=== PATIENT | male | born 1955 | race African-American/Black ===

== ENCOUNTER 2020-08-02 00:26 | Inpatient (IN) ==
[2020-08-02 00:54] LABS: Basophils % 0.1 % (0.0-0.8); Hematocrit 38.3 VOL% (42.0-52.0); Hemoglobin 12.7 GM/DL (14.0-18.0); Immature Granulocytes % 1.1 %; Immature Granulocytes Absolute 0.12 #; Lymphocytes # 1.3 10*3/uL (1.4-4.0); Lymphocytes % 12.5 % (21.2-54.2); Mean Corpuscular HGB Conc 33.2 GM/DL (32-36); Mean Corpuscular Volume 96.2 FL (87-102); Mean Platelet Volume 10.2 FL (9.6-12.0); Monocytes % 3.8 % (1.7-12.7); NRBC # 0.07 10*3/uL; Neutrophils % 82.5 % (38.7-73.9); Platelet Count 199 T/CUMM (130-400); Red Blood Count 3.98 MC/CUMM (3.8-5.5); White Blood Count 10.7 T/CUMM (4-12)
[2020-08-02 01:12] LABS: Albumin 3.1 G/DL (3.4-5.0); Bilirubin,Total 0.8 MG/DL (0.2-1.0); Calcium 8.9 MG/DL (8.5-10.1); Osmolality,Calculated 278.8 MOS/KG (273-304); Total Protein 7.5 G/DL (6.4-8.3)
[2020-08-02 01:16] LABS: ABG Base Excess 8.5 MMOL/L (-2.5-2.5); ABG HCO3 32.2 MMOL/L (20-26); ABG PCO2 45.9 MM HG (35-48); ABG PO2 91.2 MM HG (80-95); ABG TCO2 29.2 MMOL/L (23-27); Allen Test Positive; Pt O2 Delivery Device Room Air
[2020-08-02 01:51] LABS: Barbiturates Screen,Urine Negative (Negative); Benzodiazepines Screen,Urine Negative (Negative); Cannabinoid Screen,Urine Positive (Negative); Opiate Screen,Urine Negative (Negative); Phencyclidine Screen,Urine Negative (Negative)
[2020-08-02 02:01] LABS: Apearance,Urine Slightly Hazy (Clear); Bacteria,Urine Occasional /HPF (Few); Bilirubin,Urine Negative (Negative); Blood, Urine Small mg/dL (Negative); Glucose,Urine (UA) >=500 mg/dL (Negative); Hyaline Casts,Urine 1 /LPF (0-3); Ketones,Urine Negative (Negative); Mucus,Urine Occasional /LPF (Occasional); Nitrite,Urine Negative (Negative); Protein,Urine >=500 MG/DL; RBC,Urine 1 /HPF (0-4); Squamous Epithelial Cell,Urine Occasional /HPF (0-10); Urine Color Amber (Yellow); Urine Specific Gravity 1.029 (1.001-1.035); WBC,Urine 16 /HPF (0-6)
[2020-08-02] MEDS ORDERED: DEXTROSE 50% 25 GM/50 ML VIAL IV PRN ×2 (02:11)
[2020-08-02] MEDS ORDERED: ONDANSETRON 4 MG/2 ML VIAL IV PRN (02:11)
[2020-08-02] MEDS ORDERED: GLUCAGON 1 MG VIAL IM PRN ×2 (02:11)
[2020-08-02 02:31] LABS: Anisocytosis 1+; Band Neutrophils 1 % (0-10); Lymphocytes 13 % (20-55); Platelet Estimate Normal; Segmented Neutrophils 82 % (50-85); Total Cells Counted 100
[2020-08-02] MEDS ORDERED: cefTRIAXone 1,000 MG VIAL ONE (03:10)
[2020-08-02] MEDS ORDERED: POTASSIUM CHLORIDE INJ 40 MEQ in SODIUM CHLORIDE 0.9% 1,000 ML IV SCH (03:30)
[2020-08-02] MEDS: ENOXAPARIN 40 MG/0.4 ML SYRINGE SUBCUT SCH (03:30)
[2020-08-02] MEDS: cefTRIAXone 2,000 MG in SYRINGE 1 EACH IV SCH (03:31)
[2020-08-02 03:45] LABS: Basophils % 0.1 % (0.0-0.8); Hematocrit 37.9 VOL% (42.0-52.0); Hemoglobin 12.5 GM/DL (14.0-18.0); Immature Granulocytes % 0.9 %; Immature Granulocytes Absolute 0.09 #; Lymphocytes # 1.3 10*3/uL (1.4-4.0); Lymphocytes % 12.7 % (21.2-54.2); Mean Corpuscular Volume 96.9 FL (87-102); Mean Platelet Volume 9.1 FL (9.6-12.0); Monocytes % 4.2 % (1.7-12.7); NRBC # 0.03 10*3/uL; Neutrophils % 82.1 % (38.7-73.9); Platelet Count 237 T/CUMM (130-400); Red Blood Count 3.91 MC/CUMM (3.8-5.5); Red Cell Distribution Width 14.2 % (9.3-17.3); White Blood Count 10.2 T/CUMM (4-12)
[2020-08-02 03:59] LABS: Calcium 9.2 MG/DL (8.5-10.1); Osmolality,Calculated 280.7 MOS/KG (273-304)
[2020-08-02 04:55] LABS: Anisocytosis 1+; Macrocytosis 1+; Platelet Estimate Normal
[2020-08-02] MEDS: METOPROLOL TARTRATE 50 MG TABLET PO SCH ×2 (08:40→20:11)
[2020-08-02] MEDS: PANTOPRAZOLE 40 MG TABLET PO SCH (08:40)
[2020-08-02] MEDS: hydroCHLOROthiazide 25 MG TABLET PO SCH ×2 (08:40→20:11)
[2020-08-02] MEDS: amLODIPine 10 MG TABLET PO SCH (08:41)
[2020-08-02] MEDS: DEXAMETHASONE INJ 6 MG in SODIUM CHLORIDE 0.9% 50 ML IV SCH (08:41)
[2020-08-02] MEDS: LOSARTAN 25 MG TABLET PO SCH (08:41)
[2020-08-02] MEDS: INSULIN REGULAR 100 UNIT/ML SUBCUT SCH ×5 (08:58→20:11)
[2020-08-02] MEDS ORDERED: AZITHROMYCIN 250 MG TABLET PO SCH (09:00)
[2020-08-02] MEDS: POTASSIUM CHLORIDE 20 MEQ TABLET PO PRN ×4 (09:19→15:07)
[2020-08-02] MEDS ORDERED: SODIUM CHLORIDE 0.9% 1,000 ML IV PRN (10:00)
[2020-08-02 10:32] LABS: ABG Base Excess 7.4 MMOL/L (-2.5-2.5); ABG HCO3 31.2 MMOL/L (20-26); ABG Oxygen Saturation 98.3 % (95-100); ABG PCO2 41.3 MM HG (35-48); ABG PH 7.491 (7.35-7.45); ABG TCO2 27.6 MMOL/L (23-27); Allen Test Positive
[2020-08-02 11:26] LABS: Risk Ratio 3.38; VLDL CHOLESTEROL 31.6 MG/DL
[2020-08-02 11:32] LABS: Albumin 2.8 G/DL (3.4-5.0); Bilirubin,Total 0.8 MG/DL (0.2-1.0); Calcium 8.8 MG/DL (8.5-10.1); Ferritin 1390.9 ng/ml (26-388); Osmolality,Calculated 280.7 MOS/KG (273-304); Total Protein 7.7 G/DL (6.4-8.3)
[2020-08-02] MEDS ORDERED: ACETAMINOPHEN 500 MG TABLET PO ONE (11:41)
[2020-08-02] MEDS ORDERED: ACETAMINOPHEN 500 MG TABLET PO SCH (14:00)
[2020-08-02] MEDS: SODIUM CHLOR 0.9% KCL 40 MEQ 40 MEQ/1,000 ML BAG IV SCH ×2 (14:09→21:44)
[2020-08-02] MEDS ORDERED: REMDESIVIR 200 MG in SODIUM CHLORIDE 0.9% 210 ML IV ONE (17:00)
[2020-08-02] MEDS: ATORVASTATIN 40 MG TABLET PO SCH (20:11)
[2020-08-02] MEDS: ACETAMINOPHEN 500 MG TABLET PO SCH (20:11)
[2020-08-03] MEDS: ENOXAPARIN 40 MG/0.4 ML SYRINGE SUBCUT SCH (03:31)
[2020-08-03] MEDS: ACETAMINOPHEN 500 MG TABLET PO SCH ×3 (03:31→20:57)
[2020-08-03] MEDS: cefTRIAXone 2,000 MG in SYRINGE 1 EACH IV SCH (03:31)
[2020-08-03 04:22] LABS: Albumin 2.9 G/DL (3.4-5.0); Blood Urea Nitrogen 22 MG/DL (7-18); Calcium 9.1 MG/DL (8.5-10.1); Glucose 225 MG/DL (74-106); Osmolality,Calculated 286.5 MOS/KG (273-304)
[2020-08-03 04:25] LABS: Alanine Aminotransferase 44 U/L (16-61); Aspartate Amino Transferase 41 U/L (0-37); Estimated Glom Filtration Rate 100 ML/MIN
[2020-08-03 04:26] LABS: Total Protein 8.5 G/DL (6.4-8.3)
[2020-08-03 04:28] LABS: Alkaline Phosphatase 57 U/L (45-117)
[2020-08-03 04:29] LABS: Ferritin 1385.8 ng/ml (26-388)
[2020-08-03 04:42] LABS: Basophils % 0.1 % (0.0-0.8); Hematocrit 39.2 VOL% (42.0-52.0); Hemoglobin 12.3 GM/DL (14.0-18.0); Immature Granulocytes % 1.1 %; Immature Granulocytes Absolute 0.11 #; Lymphocytes # 1.5 10*3/uL (1.4-4.0); Lymphocytes % 13.9 % (21.2-54.2); Mean Corpuscular HGB Conc 31.4 GM/DL (32-36); Mean Corpuscular Volume 100.3 FL (87-102); Mean Platelet Volume 9.4 FL (9.6-12.0); Monocytes % 3.8 % (1.7-12.7); NRBC # 0.03 10*3/uL; Neutrophils % 81.1 % (38.7-73.9); Platelet Count 241 T/CUMM (130-400); Red Blood Count 3.91 MC/CUMM (3.8-5.5); Red Cell Distribution Width 14.5 % (9.3-17.3); White Blood Count 10.5 T/CUMM (4-12)
[2020-08-03 04:46] LABS: Hypochromasia Slight; Lymphocytes 8 % (20-55); Macrocytosis Slight; Platelet Estimate Normal; Polychromasia Slight; Segmented Neutrophils 91 % (50-85); Total Cells Counted 100
[2020-08-03 04:54] LABS: Sedimentation Rate-Westergren 88 MM/HR (0-20)
[2020-08-03] MEDS: SODIUM CHLOR 0.9% KCL 40 MEQ 40 MEQ/1,000 ML BAG IV SCH (05:54)
[2020-08-03] MEDS: hydroCHLOROthiazide 25 MG TABLET PO SCH ×2 (09:00→20:56)
[2020-08-03] MEDS: LOSARTAN 25 MG TABLET PO SCH (09:00)
[2020-08-03] MEDS: METOPROLOL TARTRATE 50 MG TABLET PO SCH ×2 (09:00→20:57)
[2020-08-03] MEDS: INSULIN REGULAR 100 UNIT/ML SUBCUT SCH ×4 (09:01→20:56)
[2020-08-03] MEDS: amLODIPine 10 MG TABLET PO SCH (09:01)
[2020-08-03] MEDS: PANTOPRAZOLE 40 MG TABLET PO SCH (09:01)
[2020-08-03] MEDS: DEXAMETHASONE INJ 6 MG in SODIUM CHLORIDE 0.9% 50 ML IV SCH (10:31)
[2020-08-03] MEDS: AZITHROMYCIN INJ 250 MG in SODIUM CHLORIDE 0.9% 250 ML IV SCH (12:30)
[2020-08-03] MEDS: REMDESIVIR 100 MG in SODIUM CHLORIDE 0.9% 230 ML IV SCH (16:28)
[2020-08-03] MEDS: ATORVASTATIN 40 MG TABLET PO SCH (20:57)
[2020-08-04] MEDS: SODIUM CHLOR 0.9% KCL 40 MEQ 40 MEQ/1,000 ML BAG IV SCH ×2 (00:40→18:14)
[2020-08-04] MEDS: ACETAMINOPHEN 500 MG TABLET PO SCH ×3 (03:23→21:22)
[2020-08-04] MEDS: ENOXAPARIN 40 MG/0.4 ML SYRINGE SUBCUT SCH (03:23)
[2020-08-04] MEDS: cefTRIAXone 2,000 MG in SYRINGE 1 EACH IV SCH (03:25)
[2020-08-04 05:04] LABS: Basophils % 0.1 % (0.0-0.8); Hematocrit 35.5 VOL% (42.0-52.0); Hemoglobin 11.4 GM/DL (14.0-18.0); Immature Granulocytes % 1.8 %; Immature Granulocytes Absolute 0.13 #; Lymphocytes # 1.4 10*3/uL (1.4-4.0); Lymphocytes % 19.6 % (21.2-54.2); Mean Corpuscular HGB Conc 32.1 GM/DL (32-36); Mean Corpuscular Volume 97.5 FL (87-102); Mean Platelet Volume 9.6 FL (9.6-12.0); Monocytes % 4.3 % (1.7-12.7); Neutrophils % 74.2 % (38.7-73.9); Platelet Count 249 T/CUMM (130-400); Red Blood Count 3.64 MC/CUMM (3.8-5.5); White Blood Count 7.3 T/CUMM (4-12)
[2020-08-04 05:26] LABS: Albumin 2.7 G/DL (3.4-5.0); Bilirubin,Total 0.4 MG/DL (0.2-1.0); Calcium 8.4 MG/DL (8.5-10.1); Ferritin 1394.9 ng/ml (26-388); Osmolality,Calculated 287.3 MOS/KG (273-304); Total Protein 6.9 G/DL (6.4-8.3)
[2020-08-04 05:55] LABS: Hypochromasia 1+; Lymphocytes 15 % (20-55); Platelet Estimate Adequate; Segmented Neutrophils 77 % (50-85); Total Cells Counted 100
[2020-08-04 05:56] LABS: Microcytosis Slight
[2020-08-04 06:27] LABS: Sedimentation Rate-Westergren 89 MM/HR (0-20)
[2020-08-04] MEDS: DEXAMETHASONE INJ 6 MG in SODIUM CHLORIDE 0.9% 50 ML IV SCH (09:52)
[2020-08-04] MEDS: INSULIN REGULAR 100 UNIT/ML SUBCUT SCH ×4 (09:52→21:22)
[2020-08-04] MEDS: LOSARTAN 25 MG TABLET PO SCH (09:53)
[2020-08-04] MEDS: amLODIPine 10 MG TABLET PO SCH (09:53)
[2020-08-04] MEDS: PANTOPRAZOLE 40 MG TABLET PO SCH (09:53)
[2020-08-04] MEDS: METOPROLOL TARTRATE 50 MG TABLET PO SCH ×2 (09:53→21:23)
[2020-08-04] MEDS: AZITHROMYCIN INJ 250 MG in SODIUM CHLORIDE 0.9% 250 ML IV SCH (10:45)
[2020-08-04] MEDS: hydroCHLOROthiazide 25 MG TABLET PO SCH ×2 (11:12→21:22)
[2020-08-04] MEDS: REMDESIVIR 100 MG in SODIUM CHLORIDE 0.9% 230 ML IV SCH (18:14)
[2020-08-04] MEDS: ATORVASTATIN 40 MG TABLET PO SCH (21:23)
[2020-08-05] MEDS: cefTRIAXone 2,000 MG in SYRINGE 1 EACH IV SCH (03:34)
[2020-08-05] MEDS: ACETAMINOPHEN 500 MG TABLET PO SCH ×3 (03:34→20:57)
[2020-08-05] MEDS: ENOXAPARIN 40 MG/0.4 ML SYRINGE SUBCUT SCH (03:35)
[2020-08-05 06:11] LABS: Basophils % 0.2 % (0.0-0.8); Eosinophils # 0.1 10*3/uL (0.0-0.87); Eosinophils % 0.8 % (0.00-10.9); Hematocrit 34.7 VOL% (42.0-52.0); Hemoglobin 11.3 GM/DL (14.0-18.0); Immature Granulocytes % 2.5 %; Immature Granulocytes Absolute 0.16 #; Lymphocytes # 1.7 10*3/uL (1.4-4.0); Lymphocytes % 26.8 % (21.2-54.2); Mean Corpuscular HGB Conc 32.6 GM/DL (32-36); Mean Corpuscular Volume 97.5 FL (87-102); Mean Platelet Volume 9.5 FL (9.6-12.0); Monocytes % 6.3 % (1.7-12.7); Neutrophils % 63.4 % (38.7-73.9); Platelet Count 298 T/CUMM (130-400); Red Blood Count 3.56 MC/CUMM (3.8-5.5); Red Cell Distribution Width 13.5 % (9.3-17.3); White Blood Count 6.3 T/CUMM (4-12)
[2020-08-05 06:36] LABS: Alanine Aminotransferase 38 U/L (16-61); Albumin 2.7 G/DL (3.4-5.0); Alkaline Phosphatase 56 U/L (45-117); Aspartate Amino Transferase 31 U/L (0-37); Bilirubin,Total < 0.39 MG/DL (0.2-1.0); Blood Urea Nitrogen 17 MG/DL (7-18); Calcium 8.7 MG/DL (8.5-10.1); Estimated Glom Filtration Rate 157 ML/MIN; Ferritin 1223.9 ng/ml (26-388); Glucose 201 MG/DL (74-106); Osmolality,Calculated 284.5 MOS/KG (273-304); Total Protein 7.1 G/DL (6.4-8.3)
[2020-08-05 07:05] LABS: Band Neutrophils 4 % (0-10); Lymphocytes 26 % (20-55); Platelet Estimate Normal; Segmented Neutrophils 64 % (50-85); Total Cells Counted 100
[2020-08-05 07:20] LABS: Sedimentation Rate-Westergren 98 MM/HR (0-20)
[2020-08-05] MEDS ORDERED: FUROSEMIDE 40 MG/4 ML VIAL IV ONE (08:23)
[2020-08-05] MEDS: amLODIPine 10 MG TABLET PO SCH (08:56)
[2020-08-05] MEDS: INSULIN REGULAR 100 UNIT/ML SUBCUT SCH ×4 (08:56→20:58)
[2020-08-05] MEDS: hydroCHLOROthiazide 25 MG TABLET PO SCH ×2 (08:56→20:57)
[2020-08-05] MEDS: LOSARTAN 25 MG TABLET PO SCH (08:57)
[2020-08-05] MEDS: PANTOPRAZOLE 40 MG TABLET PO SCH (08:57)
[2020-08-05] MEDS: AZITHROMYCIN INJ 250 MG in SODIUM CHLORIDE 0.9% 250 ML IV SCH (09:14)
[2020-08-05] MEDS: METOPROLOL TARTRATE 50 MG TABLET PO SCH ×2 (09:15→20:58)
[2020-08-05] MEDS: DEXAMETHASONE INJ 6 MG in SODIUM CHLORIDE 0.9% 50 ML IV SCH (09:17)
[2020-08-05] MEDS: REMDESIVIR 100 MG in SODIUM CHLORIDE 0.9% 230 ML IV SCH (17:59)
[2020-08-05] MEDS: ATORVASTATIN 40 MG TABLET PO SCH (20:58)
[2020-08-06] MEDS: cefTRIAXone 2,000 MG in SYRINGE 1 EACH IV SCH (03:08)
[2020-08-06] MEDS: ENOXAPARIN 40 MG/0.4 ML SYRINGE SUBCUT SCH (03:08)
[2020-08-06] MEDS: ACETAMINOPHEN 500 MG TABLET PO SCH (04:01)
[2020-08-06 05:30] LABS: Basophils % 0.3 % (0.0-0.8); Eosinophils # 0.1 10*3/uL (0.0-0.87); Eosinophils % 0.8 % (0.00-10.9); Hematocrit 36.4 VOL% (42.0-52.0); Hemoglobin 11.8 GM/DL (14.0-18.0); Immature Granulocytes % 2.6 %; Immature Granulocytes Absolute 0.16 #; Lymphocytes # 1.7 10*3/uL (1.4-4.0); Lymphocytes % 27.1 % (21.2-54.2); Mean Corpuscular HGB Conc 32.4 GM/DL (32-36); Mean Corpuscular Volume 95.3 FL (87-102); Mean Platelet Volume 9.6 FL (9.6-12.0); Monocytes % 6.4 % (1.7-12.7); NRBC # 0.02 10*3/uL; Neutrophils % 62.8 % (38.7-73.9); Platelet Count 329 T/CUMM (130-400); Red Blood Count 3.82 MC/CUMM (3.8-5.5); Red Cell Distribution Width 13.4 % (9.3-17.3); White Blood Count 6.1 T/CUMM (4-12)
[2020-08-06] MEDS: SODIUM CHLOR 0.9% KCL 40 MEQ 40 MEQ/1,000 ML BAG IV SCH (05:33)
[2020-08-06 05:47] LABS: Alanine Aminotransferase 76 U/L (16-61); Albumin 2.7 G/DL (3.4-5.0); Alkaline Phosphatase 51 U/L (45-117); Aspartate Amino Transferase 68 U/L (0-37); Bilirubin,Total < 0.39 MG/DL (0.2-1.0); Blood Urea Nitrogen 20 MG/DL (7-18); Calcium 9.2 MG/DL (8.5-10.1); Estimated Glom Filtration Rate 157 ML/MIN; Ferritin 1185.3 ng/ml (26-388); Glucose 218 MG/DL (74-106); Osmolality,Calculated 284.7 MOS/KG (273-304); Total Protein 7.4 G/DL (6.4-8.3)
[2020-08-06 05:59] LABS: Hypochromasia 1+; Lymphocytes 28 % (20-55); Nucleated Red Blood Cells 1 (0-5); Platelet Estimate Adequate; Segmented Neutrophils 63 % (50-85); Total Cells Counted 100
[2020-08-06 06:00] LABS: Microcytosis Slight
[2020-08-06 07:23] LABS: Sedimentation Rate-Westergren 95 MM/HR (0-20)
[2020-08-06] MEDS: DEXAMETHASONE INJ 6 MG in SODIUM CHLORIDE 0.9% 50 ML IV SCH (08:39)
[2020-08-06] MEDS: INSULIN REGULAR 100 UNIT/ML SUBCUT SCH ×2 (08:39→11:49)
[2020-08-06] MEDS: amLODIPine 10 MG TABLET PO SCH (08:40)
[2020-08-06] MEDS: PANTOPRAZOLE 40 MG TABLET PO SCH (08:40)
[2020-08-06] MEDS: hydroCHLOROthiazide 25 MG TABLET PO SCH (08:40)
[2020-08-06] MEDS: METOPROLOL TARTRATE 50 MG TABLET PO SCH (08:40)
[2020-08-06] MEDS: LOSARTAN 25 MG TABLET PO SCH (08:41)
[2020-08-06] MEDS ORDERED: REMDESIVIR 100 MG in SODIUM CHLORIDE 0.9% 230 ML IV ONE (10:00)
[2020-08-06 11:41] VITALS: BP 135/67
[2020-08-06 20:56] LABS: Specimen Source THROAT
== END 2020-08-06 13:30 | disposition home health service (06) | DRG 177 ==
LOC: EDBD → EDUNIT# → N.ED 00:26 → N.EDINP 02:11 → N.2E 03:01
PROVIDERS: ADMIT Internal Medicine; ATTEND Internal Medicine